=== PATIENT | female | born 1980 | race Caucasian/White ===

== ENCOUNTER 2018-03-04 21:04 | Observation (INO) | payer OTHER ==
[~2018-03-04] VITALS: Ht 160 cm; Wt 63.0 kg
[2018-03-04] MEDS ORDERED: DIPH25CA85 PO (22:03)
[2018-03-04] MEDS ORDERED: PREN1TAB80 PO (22:04)
[2018-03-04 22:43] VITALS: BP 118/76
== END 2018-03-04 23:25 | disposition home or self-care (01) ==
LOC: 4S 21:04
PROVIDERS: ADMIT Obstetrics & Gynecology; ATTEND Obstetrics & Gynecology
DX: O62.9 Abnormality of forces of labor, unspecified (principal); O42.92 Full-term premature rupture of membranes, unspecified as to length of time between rupture and onset of labor; O09.513 Supervision of elderly primigravida, third trimester; Z3A.37 37 weeks gestation of pregnancy
CPT/HCPCS: 36415; 59025; 89060; G0378

== ENCOUNTER 2018-03-11 19:11 | Inpatient (IN) | payer OTHER ==
[~2018-03-11] VITALS: Ht 160 cm; Wt 63.0 kg
[~2018-03-11 19:11] MED LIST: DIPH25CA85 PO; PREN1TAB80 PO
[2018-03-11 20:09] VITALS: BP 136/77
[2018-03-11] MEDS ORDERED: LIDOCAINE HCL/PF 2% 5 ML VIAL ONE (21:46)
[2018-03-11] MEDS ORDERED: BUPIVACAINE HCL/PF 0.25% 10 ML VIAL ONE (21:48)
[2018-03-11] MEDS ORDERED: RINGERS SOLUTION,LACTATED 1,000 ML IV PRN (23:52)
[2018-03-12] MEDS ORDERED: CITRIC ACID/SODIUM CITRATE 30 ML SOLUTION UDCUP PO PRN
[2018-03-12] MEDS ORDERED: METOCLOPRAMIDE HCL 5 MG/ML 2 ML VIAL IVP PRN
[2018-03-12] MEDS: FentaNYL CITRATE-PF 100 MCG/2 ML VIAL IVP PRN ×4 (00:20→02:02)
[2018-03-12] MEDS: RINGERS SOLUTION,LACTATED 1,000 ML IV SCH ×3 (00:20→10:26)
[2018-03-12 00:54] LABS: BASOPHILS % (AUTO) 0.5 % (0.0-2.0); EOSINOPHILS % (AUTO) 0.5 % (1.0-6.0); HEMATOCRIT 36.3 % (36-46); HEMOGLOBIN 12.7 g/dL (12.0-16.0); LYMPHOCYTES # (AUTO) 1.6 K/uL (1.0-4.8); LYMPHOCYTES % (AUTO) 18.7 % (22.0-44.0); MEAN CORPUSCULAR HEMOGLOBIN 32.3 pg (26.0-34.0); MEAN CORPUSCULAR VOLUME 92 fL (80-100); MONOCYTES # (AUTO) 0.6 K/uL (0.1-1.0); MONOCYTES % (AUTO) 6.7 % (2.0-9.0); NEUTROPHILS # (AUTO) 6.2 K/uL (1.8-7.7); NEUTROPHILS % (AUTO) 73.6 % (40.0-70.0); PLATELET COUNT (AUTO)-OB 209 K/uL (150-450); RED BLOOD CELL COUNT(AUTO) 3.93 MIL/uL (4.00-5.20); RED CELL DISTRIBUTION WIDTH 13.4 % (11.5-14.5)
[2018-03-12] MEDS ORDERED: OXYTOCIN 30 UNITS/LACT RINGERS 500 ML IV PRN (02:53)
[2018-03-12] MEDS ORDERED: AMPICILLIN SODIUM 2 GM/NS 100 ML IV ONE (03:00)
[2018-03-12] MEDS ORDERED: ROPIVACAINE HCL/PF 0.2% 100 ML ED ONE ×2 (04:29→11:00)
[2018-03-12] MEDS ORDERED: FENTANYL CITRATE ED PRN (05:48)
[2018-03-12] MEDS ORDERED: BUPIVACAINE HCL ED PRN (05:48)
[2018-03-12] MEDS ORDERED: [UNRECOGNIZED DRUG - OTHER] ED PRN (05:48)
[2018-03-12] MEDS ORDERED: ONDANSETRON HCL 4 MG/2 ML VIAL IVP PRN (06:00)
[2018-03-12] MEDS ORDERED: DiphenhydrAMINE HCL 50 MG/ML VIAL IVP PRN (06:00)
[2018-03-12] MEDS ORDERED: ROPIVACAINE HCL/PF 0.2% 100 ML ED PRN (06:15)
[2018-03-12] MEDS: AMPICILLIN SODIUM 1 GM/NS 50 ML IV SCH ×2 (07:45→11:05)
[2018-03-12] MEDS ORDERED: OXYGEN THERAPY IH SCH (08:00)
[2018-03-12] MEDS ORDERED: OXYTOCIN 30 UNITS/LACT RINGERS 500 ML IV ONE (11:04)
[2018-03-12] MEDS ORDERED: MAGNESIUM HYDROXIDE SUSPENSION 30 ML UDCUP PO PRN (11:15)
[2018-03-12] MEDS ORDERED: LANOLIN 7 GM OINTMENT TP PRN (11:15)
[2018-03-12] MEDS ORDERED: OxyCODONE HCL/ACETAMINOPHEN 5-325 MG TABLET PO PRN ×2 (11:15)
[2018-03-12] MEDS ORDERED: LIDOCAINE HCL/PF 1% 30 ML VIAL INJ PRN (11:15)
[2018-03-12] MEDS: BENZOCAINE 20%/MENTHOL 56 GM SPRAY CANISTER TP PRN ×2 (13:20→23:00)
[2018-03-12] MEDS: IBUPROFEN 800 MG TABLET PO PRN ×2 (13:20→19:50)
[2018-03-12] MEDS: GLYCERIN/WITCH HAZEL LEAF 40 PADS JAR TP PRN ×2 (13:20→22:59)
[2018-03-13 06:26] LABS: BASOPHILS % (AUTO) 0.3 % (0.0-2.0); EOSINOPHILS % (AUTO) 0.6 % (1.0-6.0); HEMOGLOBIN 10.9 g/dL (12.0-16.0); LYMPHOCYTES # (AUTO) 1.5 K/uL (1.0-4.8); LYMPHOCYTES % (AUTO) 14.2 % (22.0-44.0); MEAN CORPUSCULAR HEMOGLOBIN 32.6 pg (26.0-34.0); MEAN CORPUSCULAR HGB CONC 35.3 G/dL (31.0-37.0); MEAN CORPUSCULAR VOLUME 93 fL (80-100); MONOCYTES # (AUTO) 0.7 K/uL (0.1-1.0); MONOCYTES % (AUTO) 7.1 % (2.0-9.0); NEUTROPHILS % (AUTO) 77.8 % (40.0-70.0); PLATELET COUNT (AUTO)-OB 185 K/uL (150-450); RED BLOOD CELL COUNT(AUTO) 3.35 MIL/uL (4.00-5.20); RED CELL DISTRIBUTION WIDTH 12.9 % (11.5-14.5)
[2018-03-13] MEDS: IBUPROFEN 800 MG TABLET PO PRN (08:06)
[2018-03-13] MEDS: GLYCERIN/WITCH HAZEL LEAF 40 PADS JAR TP PRN (08:32)
[2018-03-13] MEDS ORDERED: IBUP-2070 PO (10:10)
[2018-03-13] MEDS ORDERED: DSS100 PO (10:11)
== END 2018-03-13 14:00 | disposition home or self-care (01) | DRG 775 ==
LOC: OBSVTOIN 19:11 → 4S 19:11
PROVIDERS: ADMIT Obstetrics & Gynecology; ATTEND Obstetrics & Gynecology
PROC: 10D07Z6 Extraction of Products of Conception, Vacuum, Via Natural or Artificial Opening (ICD-10-PCS; principal; 2018-03-11)
PROC: 0UQGXZZ Repair Vagina, External Approach (ICD-10-PCS; 2018-03-11)
PROC: 3E0R3BZ Introduction of Anesthetic Agent into Spinal Canal, Percutaneous Approach (ICD-10-PCS; 2018-03-11)
PROC: 00HU33Z Insertion of Infusion Device into Spinal Canal, Percutaneous Approach (ICD-10-PCS; 2018-03-11)
DX: O76 Abnormality in fetal heart rate and rhythm complicating labor and delivery (principal); O71.4 Obstetric high vaginal laceration alone; O99.824 Streptococcus B carrier state complicating childbirth; Z37.0 Single live birth; Z3A.38 38 weeks gestation of pregnancy
CPT/HCPCS: 86850; 86900; 86901; J0290; J2590; J2795; J3010; J3490; J7120